=== PATIENT | female | born 1950 ===

== ENCOUNTER 2019-11-11 07:50 | Outpatient (CLI) | payer OTHER | END 2019-11-11 13:04 | disposition home or self-care (01) | LOC: LAB 07:50 | PROVIDERS: ATTEND Surgery | DX: K52.89 Other specified noninfective gastroenteritis and colitis (principal); K59.09 Other constipation; K59.4 Anal spasm; Z03.818 Encounter for observation for suspected exposure to other biological agents ruled out ==

== ENCOUNTER 2019-11-14 07:45 | Day surgery (SDC) | payer OTHER | END 2019-11-14 13:20 | disposition home or self-care (01) | LOC: AMB-ENDOS 07:45 | PROVIDERS: ATTEND Surgery | DX: D12.8 Benign neoplasm of rectum (principal); D13.2 Benign neoplasm of duodenum ==